=== PATIENT | male | born 2000 | race African-American/Black ===

== ENCOUNTER 2019-10-05 13:50 | Emergency (ER) | payer OTHER ==
[~2019-10-05] VITALS: Ht 170.2 cm; Wt 84.7 kg
[2019-10-05 13:50] VITALS: BP 142/60
[2019-10-05] MEDS ORDERED: IBUPROFEN 600 MG TAB PO ONE (14:45)
[2019-10-05] MEDS ORDERED: ACETAMINOPHEN TAB 650MG DOSE (2X325MG) PO ONE (14:45)
== END 2019-10-05 14:43 | disposition home or self-care (01) ==
LOC: M ED 13:50
DX: M79.674 Pain in right toe(s) (principal); M79.675 Pain in left toe(s); X31.XXXA Exposure to excessive natural cold, initial encounter; Y92.138 Other place on military base as the place of occurrence of the external cause

== ENCOUNTER 2019-10-08 07:14 | Emergency (ER) | payer OTHER ==
[~2019-10-08] VITALS: Ht 170.2 cm; Wt 85.4 kg
[2019-10-08 07:15] VITALS: BP 170/98
== END 2019-10-08 07:52 | disposition home or self-care (01) ==
LOC: M ED 07:14
DX: G90.09 Other idiopathic peripheral autonomic neuropathy (principal); X31.XXXD Exposure to excessive natural cold, subsequent encounter; Y99.1 Military activity

== ENCOUNTER 2021-03-11 11:50 | Emergency (ER) | payer OTHER ==
[~2021-03-11] VITALS: Ht 172.7 cm; Wt 84.5 kg
[2021-03-11 12:27] LABS: HEMATOCRIT 43.6 % (42.0-52.0); HEMOGLOBIN 13.7 g/dl (13.5-17.5); MEAN CORPUSCULAR HEMOGLOBIN 23.4 pg (27.0-33.0); MEAN CORPUSCULAR HGB CONC 31.4 g/dl (32.0-36.5); MEAN CORPUSCULAR VOLUME 74.5 fl (80.0-96.0); PLATELET COUNT, AUTOMATED 190 10^3/uL (150-450); RED BLOOD COUNT 5.85 10^6/uL (4.30-6.10); WHITE BLOOD COUNT 5.2 10^3/uL (4.0-10.0)
--- NOTE | 2021-03-11 12:31 | REP ---
INDICATION: trauma. COMPARISON: None. TECHNIQUE: Axial scans without contrast. FINDINGS: No displacement of midline structures. The 3rd and lateral ventricles show normal size and configuration. Cerebral hemispheres show normal configuration and attenuation. No evidence of hemorrhage, mass effect or edema. The brainstem and posterior fossa are unremarkable. Calvarium intact. IMPRESSION: Negative brain CT. <Electronically signed by Yung Bautista > 03/11/21 [id number]
--- NOTE | 2021-03-11 12:50 | REP ---
INDICATION: trauma. COMPARISON: None. TECHNIQUE: 2 x 2 mm contiguous helical scanning reconstructed in both sagittal and coronal planes FINDINGS: Vertebral body height and alignment is within normal limits. The disc spaces are symmetric and well maintained throughout. The facet joints are well aligned bilaterally. There is no acute fracture, dislocation, or subluxation. There is no abnormal anterior spinal soft tissue swelling. IMPRESSION: No acute abnormality <Electronically signed by Samir Leonard > 03/11/21 0059
--- NOTE | 2021-03-11 13:00 | REP ---
INDICATION: trauma COMPARISON: None. TECHNIQUE: There are four views. FINDINGS: There is no fracture or dislocation. Mineralization and joint spaces are normal. There are no calcifications or foreign bodies. IMPRESSION: Essentially negative right ankle. <Electronically signed by Donavan Rhodes > 03/11/21 1257
--- NOTE | 2021-03-11 13:03 | REP ---
INDICATION: trauma COMPARISON: None. TECHNIQUE: There are four views. FINDINGS: There is no fracture or dislocation. Mineralization and joint spaces are normal. There are no calcifications or foreign bodies. IMPRESSION: Essentially negative right foot. <Electronically signed by Donavan Rhodes > 03/11/21 [id number]
[2021-03-11 13:04] LABS: ACETAMINOPHEN LEVEL < 2.0 UG/ML (10.0-30.0); ALBUMIN 4.1 GM/DL (3.2-5.2); ALT/SGPT 30 U/L (12-78); BILIRUBIN,DIRECT 0.2 MG/DL (0.0-0.2); BILIRUBIN,TOTAL 0.4 MG/DL (0.2-1.0); BLOOD UREA NITROGEN 10 MG/DL (7-18); CALCIUM LEVEL 9.1 MG/DL (8.5-10.1); CARBON DIOXIDE LEVEL 27 MEQ/L (21-32); CHLORIDE LEVEL 109 MEQ/L (98-107); CREATININE FOR GFR 1.14 MG/DL (0.70-1.30); ETHYL ALCOHOL (ETHANOL) < 0.003 % (0.000-0.010); GLOMERULAR FILTRATION RATE > 60.0 (>60); GLUCOSE, FASTING 86 MG/DL (70-100); POTASSIUM SERUM 4.1 MEQ/L (3.5-5.1); SALICYLATE LEVEL < 1.7 MG/DL (5.0-30.0); SODIUM LEVEL 142 MEQ/L (136-145); TOTAL PROTEIN 7.4 GM/DL (6.4-8.2)
[2021-03-11 15:34] LABS: AMPHETAMINES LEVEL URINE NEGATIVE (NEGATIVE); BARBITURATES URINE NEGATIVE (NEGATIVE); BENZODIAZEPINES URINE NEGATIVE (NEGATIVE); CANNABINOIDS URINE NEGATIVE (NEGATIVE); COCAINE METABOLITE URINE NEGATIVE (NEGATIVE); METHADONE URINE NEGATIVE (NEGATIVE); OPIATES URINE NEGATIVE (NEGATIVE); PHENCYCLIDINE URINE NEGATIVE (NEGATIVE)
[2021-03-11] MEDS ORDERED: HOME MED LIST COMPLETE! XX SCH (20:40)
--- NOTE | 2021-03-12 08:59 | ECGEPIP ---
[facility] - ED Test Date: 2021-03-11 Pat Name: UZIEL SOLIS Department: Room: - Gender: Male Bank Manager: : 2000 Requested By: NAOMI Angela Order Number: [id number] Reading MD: Norberto Vitale Measurements Intervals [place] Rate: 64 P: 40 RI: 150 QRS: 67 QRSD: 86 T: 22 QT: 364 QTc: 375 Interpretive Statements Normal sinus rhythm with sinus arrhythmia NSTTW ABNORMALITY(S) NO PRIORS FOR COMPARISON Electronically Signed on 03-12-2021 8:59:06 EDT by Norberto Vitale
[2021-03-12 09:44] LABS: RSV AMPLIFICATION NEGATIVE (NEGATIVE)
[2021-03-12 10:40] VITALS: BP 139/71
== END 2021-03-12 10:43 | disposition short-term general hospital (02) ==
LOC: M ED 11:50
DX: R45.851 Suicidal ideations (principal); S93.401A Sprain of unspecified ligament of right ankle, initial encounter; X83.8XXA Intentional self-harm by other specified means, initial encounter; Y92.138 Other place on military base as the place of occurrence of the external cause; J45.909 Unspecified asthma, uncomplicated

== ENCOUNTER 2021-07-05 17:16 | Emergency (ER) | payer OTHER ==
[2021-07-05 17:16] VITALS: BP 127/74
--- OUTSIDE RECORDS SUMMARY | 2021-07-05 17:25 | CCD ---
Author Author [facility] Organization [facility] Address Unknown Phone Unavailable Care Team Providers Care Staff Physical Therapist Name Role Phone SYSTEM IN, NOT IN PROVIDER Unavailable Unavailable ROMINA LOCKE MD Unavailable Unavailable ROMINA LOCKE MD Unavailable Unavailable ROMINA LOCKE MD Unavailable Unavailable ROMINA LOCKE MD Unavailable Unavailable ROMINA LOCKE MD Unavailable Unavailable ROMINA LOCKE MD Unavailable Unavailable ROMINA LOCKE MD Unavailable Unavailable ROMINA LOCKE MD Unavailable Unavailable Steffi Vargas MD Unavailable Unavailable Steffi Vargas MD Unavailable Unavailable Steffi Vargas MD Unavailable Unavailable Steffi Vargas MD Unavailable Unavailable Steffi Vargas MD Unavailable Unavailable Steffi Vargas MD Unavailable Unavailable Steffi Vargas MD Unavailable Unavailable Steffi Vargas MD Unavailable Unavailable Steffi Vargas MD Unavailable Unavailable Steffi Vargas MD Unavailable Unavailable Steffi Vargas MD Unavailable Unavailable Steffi Vargas MD Unavailable Unavailable Steffi Vargas MD Unavailable Unavailable Steffi Vargas MD Unavailable Unavailable Steffi Vargas MD Unavailable Unavailable Steffi Vargas MD Unavailable Unavailable Steffi Vargas MD Unavailable Unavailable Steffi Vargas MD Unavailable Unavailable Steffi Vargas MD Unavailable Unavailable Greta HUMPHREY MD Unavailable Unavailable NIZAR, R AHMED MD Unavailable Unavailable NIZAR, R AHMED MD Unavailable Unavailable NIZAR, R AHMED MD Unavailable Unavailable NIZAR, R AHMED MD Unavailable Unavailable NIZAR, R AHMED MD Unavailable Unavailable NIZAR, R AHMED MD Unavailable Unavailable NIZAR, R AHMED MD Unavailable Unavailable NIZAR, R AHMED MD Unavailable Unavailable NIZAR, R AHMED MD Unavailable Unavailable NIZAR, R AHMED MD Unavailable Unavailable NIZAR, R AHMED MD Unavailable Unavailable NIZAR, R AHMED MD Unavailable Unavailable NIZAR, R AHMED MD Unavailable Unavailable NIZAR, R AHMED MD Unavailable Unavailable NIZAR, R AHMED MD Unavailable Unavailable NIZAR, R AHMED MD Unavailable Unavailable NIZAR, R AHMED MD Unavailable Unavailable NIZAR, R AHMED MD Unavailable Unavailable Re-disclosure Warning The records that you are about to access may contain information from federally-assisted alcohol or drug abuse programs. If such information is present, then the following federally mandated warning applies: This information has been disclosed to you from records protected by federal confidentiality rules (42 CFR part 2). The federal rules prohibit you from making any further disclosure of this information unless further disclosure is expressly permitted by the written consent of the person to whom it pertains or as otherwise permitted by 42 CFR part 2. A general authorization for the release of medical or other information is NOT sufficient for this purpose. The Federal rules restrict any use of the information to criminally investigate or prosecute any alcohol or drug abuse patient.The records that you are about to access may contain highly sensitive health information, the redisclosure of which is protected by Article 27-F of the [facility] Public Health law. If you continue you may have access to information: Regarding HIV / AIDS; Provided by facilities licensed or operated by the [facility] Office of Mental Health; or Provided by the [facility] Office for People With Developmental Disabilities. If such information is present, then the following [facility] mandated warning applies: This information has been disclosed to you from confidential records which are protected by state law. State law prohibits you from making any further disclosure of this information without the specific written consent of the person to whom it pertains, or as otherwise permitted by law. Any unauthorized further disclosure in violation of state law may result in a fine or alf sentence or both. A general authorization for the release of medical or other information is NOT sufficient authorization for further disc losure. Allergies and Adverse Reactions Type Description Substance Reaction Status Data Source(s ) Propensity to adverse reactions NO KNOWN ALLERGIES NO KNOWN ALLERGIES [facility] Encounters Encounter Providers Location Date Indications Data Source(s ) Inpatient Attender: ROMINA LOCKE Drew nder: Steffi Vargas MDAttender: BERNIE HUMPHREY MDAdmitter: BERNIE HUMPHREY MDReferrer: PROVIDER SYSTEM IN [id number] 03/12/2021 10:01:00 AM EDT - 03/22/2021 10:20:00 AM EDT [facility] Patient discharged. Medications Medication Brand Name Start Date Product Form Dose Route Admi nistrative Instructions Pharmacy Instructions Status Indications Reaction Description Data Source(s) Ketoconazole 20 MG/ML Topical Cream Ketoconazole 2 % E xternal Cream (NIZORAL) Ketoconazole 2 % External Cream (NIZORAL) 03/23/2021 12:00:00 AM EDT active Apply to affected area [facility] olanzapine 5 MG Oral Tablet OLANZapine 5 MG Oral Table t (ZYPREXA) OLANZapine 5 MG Oral Tablet (ZYPREXA) 03/22/2021 12:00:00 AM EDT 5 mg Oral active Take 1 tablet by mouth [facility] olanzapine 5 MG Oral Tablet OLANZapine 5 MG Oral Table t (ZYPREXA) OLANZapine 5 MG Oral Tablet (ZYPREXA) 03/22/2021 12:00:00 AM EDT 5 mg Oral aborted Take 1 tablet by mouth [facility] Ketoconazole 20 MG/ML Topical Cream ketoconazole (NIZO RAL) 2 % cream ketoconazole (NIZORAL) 2 % cream 03/20/2021 09:00:00 AM EDT Topical active Topical, Daily Rock dard, First dose on Sun03/20/21 at 0900, For 30 days
Apply to affected area
[facility] Medication administered onsite olanzapine 5 MG Oral Tablet OLANZapine (ZYPREXA) table t 5 mg OLANZapine (ZYPREXA) tablet 5 mg 03/17/2021 10:00:00 PM EDT 5 mg Oral active 5 mg, Oral, Nightly, First dose (after last modification) on Mey 03/17/21 at 2200, For 29 doses [facility] Medication administered onsite olanzapine 10 MG Oral Tablet OLANZapine (ZYPREXA) tabl et 10 mg OLANZapine (ZYPREXA) tablet 10 mg 03/16/2021 10:00:00 PM EDT 10 mg Oral aborted 10 mg, Oral, Nightly, First dose on 03/16/21 at 2200, For 30 days [facility] Medication administered onsite Magnesium Hydroxide 80 MG/ML Oral Suspen milad magnesium hydroxide (MILK OF MAGNESIA) 400 MG/5ML oral suspension 30 mL magnesium hydroxide (MILK OF MAGNESIA) 400 MG/5ML oral suspension 30 mL 03/12/2021 12:16:44 PM EDT 30 mL Oral active 30 mL, Oral, D aily PRN, Constipation, Starting on 03/12/21 at 1216, For 30 days
If serum creatinine > 2 notify provider before administering.
[facility] Medication administered onsite Hydroxyzine Hydrochloride 50 MG Oral Tablet hydrOXYzin e (ATARAX) tablet 50 mg hydrOXYzine (ATARAX) tablet 50 mg 03/12/2021 12:16:34 PM EDT 50 mg Oral active 50 mg, Oral, Every 6 hours PRN, Anxiety, Sleep, Starting on 03/12/21 at 1216, For 30 days [facility] Medication administered onsite Acetaminophen 325 MG Oral Tablet acetaminophen (TYLENO L) tablet 650 mg acetaminophen (TYLENOL) tablet 650 mg 03/12/2021 12:16:32 PM EDT 65 0 mg Oral active 650 mg, Oral, E very 6 hours PRN, All Levels of Pain (Pain Scale Score 1-10), Starting on 03/12/21 at 1216, For 30 days
Maximum daily dose of acetaminophen is 3,000 mg from all sources in 24 hrs.
[facility] Medication administered onsite Insurance Providers Payer name Policy type / Coverage type Policy ID Covered constitution party ID Covered constitution party's relationship to buitrago Policy Buitrago Plan Information [facility] [id number] Self [id number] [facility] ACTIVE DUTY [id number] SP [id number] [facility] HUMANA - O/P [id number] Problems, Conditions, and Diagnoses No Information Surgeries/Procedures No Information Results ID Date Data Source [id number] 03/22/2021 08:36:18 PM EDT [facility] Name Value Range Interpretation Code Description Data Kristen rce(s) Supporting Document(s) Discharge Summary [employer] PXIZVw4nPdNUYqPz68/ZMDoeNWKog9YzPDnvDTg6EZjkASRcX8FuDVJ0aO7aYOO3APtDHmUzCiMsBCW1 lbm [file] y5XEg5UQE320aEOqqeATxMaTURg0zj29K1Yo5PLJUbIbLZRxAH8XvTc4HwadBo1FtCSDeu9whRLw+bench 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 battery [file] 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+Np7TXIYrYYa6O4T3IXZsQXi7Y7WSE5BEBPZvNT hjURjwNDKzIUc7K2C5MHVxX6RWP3Qbhzwhtp5+YO8QZ69NWBKdWYm0P6N6nVRnL2N9aTjKpGH9PQ0HLY 7PbVt5kDVtwF3+XG1XS2CBIxMgKVw7D2D5mMAxH7D9qBqRuIJ1YT3BJK1MsPBvNTQmdfIeCb3lY7GGGZ hENuSRGTS8NE1XqRSjMZ1WhSJIU4XbeTXbJt1lKMto dHSjmP3cBx6kRMfdKR8MMnTCEZaDAAO1ZB9ZxELrBH3QiWHDS5ZloBAxNp5oIAsaxXQqtr9+LN9QXFIi Ne7FUq7+QTyuvoHnKkwRSuI3JVGli8ZxGPl0SJ2IEF4hkGrhGOZ7Ym0LiIU4cFGuY8lRCT1DwWFhZ94a wKZeGQUuQg0VKrJ4uxDiuO0BDH05pIQjm3B7UXZwI0 qaUHphv65sITlbUUuSLT7cZILVWKhbKQxgJNC8MvGwpdslCSEqXy2NCrPzDAz3cP6mtNJ1CJH3IkecfM UmRBfsMcDdNgZrGwY9nKuddcb0FFtbQV5zEVndmtcaIPDqBet+JBnqZGJgEQXkGqdBJSTaeT4pulR1qu DeQHvtoLQdWc1qw9z3GtysQr6nUf3uWIz5PtGwHrEj FPMdUr3zaJ40RNfxyrOrFn7WJgVdDWB1D8EbJimIWRL+RYrtOCsnnAw7wMGhUNCgPw3NDEYfEUFcYHSy ICAgICAgICAgICAgICAgICAgICAgICAgICAgICAgICAgICAgICAgICAgICAgICAgICAgICAgICAgICAg ICAgICAgICAgICAgICAgICAgICAgICAgICAgICAgIA 0KICAgICAgICAgICAgICAgICAgICAgICAgICAgICAgICAgICAgICAgICAgICAgICAgICAgICAgICAgIC FvZFDdAVQnDFSvYHUtOYYqINKyOOIsBMDtGHGuUTThFJXpMXHwMRLuVV7QAEZeDANcDEUjFRIbZYWoZT AgICAgICAgICAgICAgICAgICAgICAgICAgICAgICAg DQLsERDdYYBpBIGnSSSgIAOeJFFvJAFwGLLgBXDaVTKvZRPuCYVzLHEiLPIxOAKcRMGeOH6RIPJbXEGc ICAgICAgICAgICAgICAgICAgICAgICAgICAgICAgICAgICAgICAgICAgICAgICAgICAgICAgICAgICAg ICAgICAgICAgICAgICAgICAgICAgICAgICAgICAgIC RmEK7SHAMgVNKbCZKoRFVzMQIqKTUqTVQoXOCsOYIdIKPjWCFqUCWsZYFrBPDeQMMfZZMqRCJqRULaUB IvEZKlRBRvWSYzAFEaPATiPJUuCIXoPNGhFBYhXQMsTAMzKCWtEPLwRMCnDI1QWBXpLNWdNBEaSSInWL AgICAgICAgICAgICAgICAgICAgICAgICAgICAgICAg MIRaIAEgADOcZXHlALVjMVIzOTQjQYMsQWPaORLrKINlJPFsHDEaEWBpPVIhJVSbITTiWZYgFS5ODDWj ICAgICAgICAgICAgICAgICAgICAgICAgICAgICAgICAgICAgICAgICAgICAgICAgICAgICAgICAgICAg ICAgICAgICAgICAgICAgICAgICAgICAgICAgICAgIC KxRQJbST8RIACdLWAsQPOiLTNzZTKyZHVxVWUaXBNkBKWiJRSnCXEbGREiHZGnOBQqVQGrAPRgBLLcBZ JpKRJcBEPgJVXhVLLzCHHtWMInBLPjCDHlPWCiGEVmIRSdJCRrPLPsVUArCEExNT7ARWBmMYEtHEHuMT AgICAgICAgICAgICAgICAgICAgICAgICAgICAgICAg YULiPAFkOTTuZWJeUTCzBVIsAKGsHHPxYRInNEZoUUCfSJMqOBReQVDtSGCzQWBqLWRtIDFbINPtKI4E ICAgICAgICAgICAgICAgICAgICAgICAgICAgICAgICAgICAgICAgICAgICAgICAgICAgICAgICAgICAg ICAgICAgICAgICAgICAgICAgICAgICAgICAgICAgIC ClZYXpZKYkRV5HLD44nIArn1B6QVXgKQ5bsqc/Sf6VIWldobHjrVXcMM2GFjIkSP8jad9YCsGvDG2tyo 1UVScMHdJzD7L1sVNeQKNjOYHHGxOzW87yTAdpFg35TMxpWNUwKiJtDEe7Xa7JZqSmZ9alIGUuEbJ1TF YdUnK4SCZuQrC4RAMyBhPmKQGcWPWmXXBwYLZBALX7 JZDjEeRrCuIkLNEnVUaeJAAITLBjCOToAcVkCVseCJ9Iu8TyoQU2WTs+Tb5BQI7bd7HrDRj8EOKlZN1e pb7GVLfARzDmB3RhawU6BMG0TDSzCh1UUHNaXVAuxDG3GHWuOCNKOvIdC7WfbE03GHAZCr1+DQplbmRv ExuTBkS3UZPde6MqPDn4YJ2NPENaFDf7pUAsQCjoF9 txhysiGZG8rJ5kjstrPlppLYUrtVaxFInpHQ7zJL5SNFF8BQfnDxKsNgGhCBTfIKirZSUKUOqLIaJyQ9 Ldb1UpGlW0ZKRcZuCrHXgqLYWiOuN8VL08xFibUP8RWFZqXIWaTB43GWI1UTUcYy5LVk5ZGuLzWR9qnc 6ZKmRqAOSsLhxJWcf8XAsvTT4MbFWxK1WnmSSyg0rC DlHjJ1PDNIB9RSTjPi1INDPcVtXbNBTkIRxgFI8gGBUrIPYFsXaktdP0BC2OZE1zdlLpVV3XZpBjBz7j Jx9SBxNdV3ItG8VkMIRbSPEMLZpzKK8PQImpBP2eFK6To6UQnLEshJ0qna1ZPFDdERIpVqgpsu6NAnuu J3L8pJenQKGbRSghYSRKJOcwVE9EQYFxXLX2CUV8Dx HrZQEMLrKmH36aLY3SB8Jyl59tKmJ8WHXlPbCsMApvBH37mJddueOshDJicIjmBN3EIa6+DQplbmRvYm sNPhxlJNSPQoThGtGWPjXdOGLtWDYoDLQzKmR2ZuTqVw9SLYLrTYMuIIFlBiRcPSOjARXuCGffVJNdEX JuFIFoCIJwZHHkBO8OSaSdQDRbCsH6NbUpQDXjCFIi qc4TDWUtMTWbHSJ2OxEoSOVuDVHzUTahLPPnSJQ7VHFcOGScUXOfSL0QFzThBPNtEAWqRQQyNCSwMRLc dd7MYAHwRGYbKJL3KBXrJSNfHDXcJHlmVWUuVIE1PkSyDMDqUVRtRN0OArPfLPJvOVA3LESxZSFnPYZf my4OPKBkUJPwKMl7QPOjYAQrKRJtSLczPCMgCQF7Xy I7RALnECJqVE2OBrDdREZsHFQ8THIqTOUqKKOeqz8GILUjXFBdFDsvUjYxVOXsVKLvFPwcBYKzYIJ9KL F2JPQqDAUkFO8AWzMjTFHlKjG2ZUDrQYJgLMLkzh4UMVFeJUOyYgstTiItJAIzLHPkVHikAEMeERW5Rg m0BBDtOKIiLM7KQzNzYRSkKcc5JYDaNRYpBJBslw7D XPQlYNAbLCOcHVHzMLGsMMLyVRamYMLtQIVvPGR2UBFyOGYwEZ2LScEmQZNqAeS9HHTwODVcXGZpgi4I JTUmKOHuYoy7SOKwMAMkEAEnZHhsCGJvGMK6FBV6PTQaDUGoMH4VRyVwSVYvXtWcOOMnSEYhNJUaub6S SCQmACQxGZZgDBApTRInYJSuKNmyQVVyWEC7OTk4PU TuFQOuAS4YGaWgCKOkPhAeZUAtMYUsRMSjia1OAPGrAREgDfK5WOKvQIGwLDLeSCrzGTAwHHJ4CWB5UL GeKZMxXB9UExZqZHUkVba0QoecNUGsNOSstt0BBUPlIPMyYxcyIqOxBKSmAHWyFHrhQYJsZRZ0TAy9GC JoFVXaYP4UCqZsHOWhRzsxTVQtJXFzXVIfmy8XEUHb HFXgUPM9KbBsYJTfXXYjSIhsZTOxFXEfGcT4GWMiHWCaZQ6TWbKiFDNfNQN0NrTzMTMnTKUjhu7RHJOu CHN0ELVnSXOsEXArYTTcXIpbCWLnVPZsBRdnSQXpDUXsHA4RXyHoNEYkPHH7ABswZYLwEKVgdz0GCUXh OIC6CVa2AZOvQUCnREAsYKleLVBvWGSzInJ1RUKoTB AqBP9MFvRkMANrLPO4RHkoFPJvZLArdc2UHJUcMAW2Sgj3PtHrCQRhDQDhSBkiRUYcPXU2XNO8BLYhJG AlKY5CLuKbYUEoANBvPCXcNOVaOBXswu5FLTDiOFE9DANcMbZwWYKiMGMhXDgoZURtJPG8TVL1YEWoQG PdKF8LZiAlOYObTIs5LxQzHYHeSHYclf0XDBUePIR8 PGfvJTAfPRQbGHHjXJqoQJImLEFlNBsoYURnUWZgDE8JEmRfDCCrPmZlAHReGXSyOESqst7HQSVqXTI3 SYPhCGNyZYJtQJJnRTguQEFxPLReJuzzVSNyWUYwLN3RZyZgNXRwBgB3PYOpGXKcNCGyvx9NIOPzAUT9 MTgwMiAwMDAwMCBuDQowMDAwMDYxOTgxIDAwMDAwIG 8YNiByKDPqRsY5GXNbDUGuTFTszx7QANRmUCA9Kop0KgDjKVOgXEHfTLfdLCLrLAZ2GVX5EUQlIBMeLL 8RSwHaVYPfBnNxFZZfNSMgXKEcdt2IjMEqmBgxbx5DJAwTTk7FgTfqGDEuNPdlAu8aiIW6TYDjZYXCLc 7FzwPnKGVsQQQVFIybLADuOKv9FNG8ZGs8WPjnIGKr BvAiIRM2YeXwHGL3PUC1FFGvPuJ7CWnqYBP8LLiwRMBuM1GzXpF8MBj9AJHiUUIpGUFtRFU+HX1eCAr+ Qh5Tu0SvwvE8fcJqSVt1TOM4PL1BZVWOO2JWYp== ID Date Data Source [id number] 03/13/2021 04:37:20 PM EDT [facility] Name Value Range Interpretation Code Description Data [facility](s) Supporting Document(s) History and Physical [facility] TCSQYh1nYjQJOeMn77/PDKeqZGGfc6KnXLvsPHn3MKdmLUZtO5WhTGF7cG6rUNI5FSrXIoEsVyKiWKM8 lbm TtHseZAcMuAXOpRkpTXeKaZPwiFzeqnLPaZI7GaTX3PLXhY05jDMUsXUDhJ6MdJXT5FPd+Dq6FECVvjN MdYM0CQjuR9Ckxg+R4Ik5tlT+HDIAFDkvmUfNEELGId7J839bnuxT4r4W1Q1G8CoqVkFwa0Ns++sp6sT jvnvFZGKs0qP9XpGpDyRhND53IRyOLCH10Db7563Gz th2v16yaPDSqrv//SdTdbLXpVv/JOpEBytKWXwzI/jDremo4KIbhj5hMwRyDppU6TzdtoMMxoIN9MDj5 hXd9S4ookcxOCYak6uyMYQSM0IkYK3LkGRILXIX/p8hDCzxFuFThy+B4SbzpmQxYZRgpPVN8DfzFybwa 0oHKffzBzluIZcsjdsGBHzCCqPLGKR2MSL4H+vm7nD 4fiQ87+0C6AXnfiXWKFfSubErPgz4tCw4jDb1iudT0Gkp217WAH43lcGAKmsXZx6TFztWRQK3nnWgC3R 2ggOdJq4IdGOQEyb6eJUkTjAcgCFwEolgNBp9xk6V/0jhapOIsmifTZXg/r4fdqqfwWd+ePOye1lU32S w3h4i6xtj5naUWEyQz27YlsIO8TTot/nRZ4Ltg3Qyv fp8dIXxC0E8z4qxfest1mH3xpfmF1m1Gk85C8pl71RUJeNyao+XysA1puelm80JP/pYan7EfjQ7wzmCH 5+fs5Lr+MyA5TeJwqZYHhjJ78wxxGOEGSYxEOs0XMcKRhxvWaofurO9VfQSJZKUNQW9WRTFHVwxZdhSj vnClFw4/6gDWDa2XfxQqcRMBAy02JUPz0h65YDtJVw GJvrw3SrkDf3iY/n5iWV6h9TO1pGEq+xEtEzifO0R/UP+Saeid+s9NZPtsC2B6QvD4ZdpG0+JQOTpgTtax JOGwpwY0MIuzuFHdWZ7Tlv2ygVvZAQ4pJiS4bMtPXEtom9sjkiHMV+uj4acqOCtRgrbOY92mdU39kpfo +G5NevHk4w/mp+EgZIo1mHVTUjQT7FUYYY4ETrnzHc +omSpxSO+5SksdSDSrCdNZNDVWRST/iAJzVjwfQX41FjaIS+mJ93emsUOmybnNbvxhIhZXLBTjBJzuAk CMnbf0C2WCT6r1YWvwpU9FZi5LAIBMzi4VMN+dP0n5LEEQw8e00GBwhZpw1vvESZD9zY16v0nL1XYoex 9EbbDO9gacJTSdbik1s2kzHFnsuvGb9Adev7UMLqFz WpNErlirXnJgG38y7IpnT1jr1MXotoHa/HwkgxGvu8nsg3ov1fhYyuiybG5fZtOwIwh7px5qsxw9PFcD QyAAJH+xdHgu7x7kRtIbIzuFdFcgpBTicyRoOvesw01H/pWrlvh32YeWvvlqeN7FBhy4BcH9LiLXISpy fOKsCf4qiDnwLNCocFSsyLtvhK7JlJlt6E8N6w059u dfdouiEUVrqBRJtsIvo4E+vPbju35wQnvsIbUfQq6Ynr+IYFZBrnO2Yj/n+7OT7NqyguJNsN5E2qiERE u3veFP9vfZFeztKLDOKRBb1CDS+PFC/Ayj7N5MJa24+XigDeO8QNOC2YBeAxvTq/BoWVt1PHyBFnuqav uOJ8LtcA/F+0xNfbgE9ZmlZtmB9jjXXJPE/7IGhH7a i7bDDLvt8zjcnMQYyIy1vSVKGx7qygLTqqgSj1RFVhERcBrnhpeSybxanjyBWD64yd2O7VBmvyIj63na Tb1ZRraB8g83oVnSmBwPc2fmTxDLNF2vmSJu3ZTiuWPtWKCPwfW05eCKPkqyrfOg+c4nu32qwxpj1fSo uOUN2Lf5G2oszYudIJvJ8hcTvP4ThylQ2qgiyf+lF4 x32G7bM3f99ySYC6tVL6SUxNn4kRIPO1d2J8QpN4Zr3NgopmHbtURzQX1ICkuvkbj9mp8DayMU82+MAGGIE [file] Z8MGTuXVN+IZ9hBAk+Gt4Hm4XgmwW9npXqDRroRIK5Yl0CDAUUQ3VTFa== ID Date Data Source [id number] 03/12/2021 04:47:14 PM EDT [facility] Name Value Range Interpretation Code Description Data Kristen e(s) Supporting Document(s) History and Physical [facility] MNRTOo5hRvTYWtXz94/GNGukRNTzi6KtRNlzEIh2IClbUZAmW8WxCEM7kB5iPXL5STdBUmQqMaRbDPS9 lbm AmUvdXJaWyAGSgRlyXNeMgBWyhKhacpOKbIY0DsDT5AIXoV12yBZYcSVMkX1XyABPfMAL+Xx5RGNWfqG MwDV7JGrcR8H3uZsP6Qn0+2l9TDwgTSwBOta3w1p3uDCfsGtRWLOrp+AKBXNprsY6Sd4dcR9q6C1fBXP +063ImZd3Xy0EI2Gk31z26t7Tv/arQcPxB85th+7P8 [file] +z8lXKkwjhTV0ryjnnxF7AOF/MANUFACTURING DIRECTOR/xlEAmA6dMGhRrOdcJqkGnrrkvIy4p8KXiyRtg77kP6+7xhEx3iGg [file] AgICAgICAgICAgICAgICAgICAgICAgICAgICAgICAg ICAgICAgICAgICAgICAgICAgICAgICAgICAgICAgICAgICAgDQogICAgICAgICAgICAgICAgICAgICAg ICAgICAgICAgICAgICAgICAgICAgICAgICAgICAgICAgICAgICAgICAgICAgICAgICAgICAgICAgICAg ICAgICAgICAgICAgICAgICAgDQogICAgICAgICAgIC AgICAgICAgICAgICAgICAgICAgICAgICAgICAgICAgICAgICAgICAgICAgICAgICAgICAgICAgICAgIC AgICAgICAgICAgICAgICAgICAgICAgICAgICAgDQogICAgICAgICAgICAgICAgICAgICAgICAgICAgIC AgICAgICAgICAgICAgICAgICAgICAgICAgICAgICAg ICAgICAgICAgICAgICAgICAgICAgICAgICAgICAgICAgICAgICAgDQogICAgICAgICAgICAgICAgICAg ICAgICAgICAgICAgICAgICAgICAgICAgICAgICAgICAgICAgICAgICAgICAgICAgICAgICAgICAgICAg ICAgICAgICAgICAgICAgICAgICAgDQogICAgICAgIC AgICAgICAgICAgICAgICAgICAgICAgICAgICAgICAgICAgICAgICAgICAgICAgICAgICAgICAgICAgIC AgICAgICAgICAgICAgICAgICAgICAgICAgICAgICAgDQogICAgICAgICAgICAgICAgICAgICAgICAgIC AgICAgICAgICAgICAgICAgICAgICAgICAgICAgICAg ICAgICAgICAgICAgICAgICAgICAgICAgICAgICAgICAgICAgICAgICAgDQogICAgICAgICAgICAgICAg ICAgICAgICAgICAgICAgICAgICAgICAgICAgICAgICAgICAgICAgICAgICAgICAgICAgICAgICAgICAg ICAgICAgICAgICAgICAgICAgICAgICAgDQogICAgIC AgICAgICAgICAgICAgICAgICAgICAgICAgICAgICAgICAgICAgICAgICAgICAgICAgICAgICAgICAgIC AgICAgICAgICAgICAgICAgICAgICAgICAgICAgICAgICAgDQogICAgICAgICAgICAgICAgICAgICAgIC AgICAgICAgICAgICAgICAgICAgICAgICAgICAgICAg PBYoQQGdKNNrAQGkARReRVYgBJSeKDNvEDLcUDFjLTErDBIfTNLoKAVqIYTbDTn4U3bzPEDcFPZaST7b PQh4Sv7+GJxWNwPbBFY7uyTecD2RQA1jv2PrXHlvISWzg5EtEDv3HR1IGFZpHDcgET6HPDumko6OYIOt KQJmzSLLy5pxAzYsNSH3BKJfDkbxXF2CHFUhO6iztg SyFIEiRYOJUOibEYEXSFmsHTTOTFQlPTJqDrZqGyKwLVQjZPYkRIABQPV8XVJuUwHwXSgrJB3Xq1RquZ A3DQo+Uj5ZPT1it0AuUAx9VgAeFX2che9KLCoTSlXoF0CmxeF2AJK6XPTlTc6KMBUyLICbnWI9JXInHA NZBwHmC0LlpT67LMEHEt7+JGptnmAzLbnVYxW0SAFf i3DcOHw7GD6YQKZhWHt0hTJnVXQVJXT1BIZncvjpTINKb9B3PNZNFTNdzMH8CqP9XsBhGwTfBOP9CDFi RE8zAQnzLS9JWMC4ZLkqEWNfEOGoZ6jEYkMmKPEvVyTpxQnaGM3JZyQwL3RsvkSixZS1BeRoSXAZEu3+ YNytfqKzQazRFyQ9ZMFez6YqQTv5CZ6JWQCbEUfnTR 1EDYDmeS6yDTbdVH6JHtK4JEQjXKTNBuWvE19eqWRuXCl9S6OlEjPwTCAxLsdqZHZnNPnhSvOaXXOfOr BdDQogID4+ID4+YEyuYA9XEWjejqOsPOIpHo5OKWNkVEJrTL0eXITvDVGuM1W6vVctUCHLIgCeU9ysth nhAH1dPGEzX562xUezpcNqONIaFYOcAq7AXGYdWVB7 IPZfcWMvCCCeBFVWCHrvDT5YtBRyKWY0oT1wFRnzQIAxZSZdW3jQLjScvCspKH64mFxlizFjnBVyIVr+ Gg4QHR3yc4EwYPb5wnVfOZvyVAB0LZqjBMJtLBSrEHGsQDC8FPS1POSVIuWoVMVvAEPfLPxaHKHyBHXg ww8YCCIvLRJnOTC5LHGxBLJpIOSxCBghCIYwDHC6Xt C4NGCmCSVmUH1CMkNxOZVjBQDhGCwnRYVoHNSoqh9YXTNjBVNpScQuDZIwAEFjZTRqULidSGSlVEGsHz D4HVHgKNEwZF4FEfBmKDMsKJYuRHYwEJWnPFBmop4ODQTzECLnVsS3UOOgQVQnSMIbAEbtEQXsDNGvXK c7SERnTFDrSW8TNlXeSEPfCFZ8EgfpPDNvGPEyeh7D CUWrFABjKSC1VeRhOMGaLUVnZNhaPODkLPH8Bvl4WVLdJMVwNH1MXyHlXAMoZGg2NRCtCRTtPTKekf3X ZMJwSFEqZbb1ESHqJUUkLHTuKGdqGXAkLCFhRGS9RYEwOQMnLK9EAsNuZLXnMfE3JPFkIUJxZECxvj4Z TRUoREKiKsS5AUZkJWWaSBZlPAenZQYpWMKlRAGyQM OsHDKxWV2AMzLpLSGjSrV0GgVkLSOqZUBrpd0FBZSwWFJwGzVyWMDmFWSqFXTmACbsHGVvBHXmASOnRJ QiMHEwRE6BDtLrSWSmFyC4SdRzIXLrSSTkty7AWZCnSYRzWGd1JxHkBRDrJUJxGJxcYVNuUBP6UVMgVT HkYBEdDT5CMnVlQTMtFfJoUBUtOTElLRQbep4YAZOf LLZdPgPkIxDlWMUoVPKlXYikVEKeJSQ9PNesXTLlMXQlYZ4PVdGnIXGeAyj5NMMzKTTnMRFmhm5QMKXf TIAjQlB5EUIqFYBtFWLlRQbtPIPtGFQ3CES0KKPaUZUuJT7NCePiPGJeViS9WOJtCSPuXZPrjy8NXWDv ORNzRkMyVWUhCPPwEFRsNSbiXXAbXYGxIwW8WYZjYA TeHM6GCzSdCQGfQkO4FHOsPLUeKLXdua9WHCZaDZElBcCkAQMgKLEuWVSxZAknGDMsMSKbFAX3RDKoNE NxBD9KOpGkYCGaRuUvYPdaTUBgPOZeri4ZRDGaFNYqKWWhTKEvJNZeDXViDVnoEKLtZMA1OJt6MCIoQI EqDH6GQfChSKNuReHfSwTgKHKgVSZmum0FPQUxFZQf PFH2IqUrJFWjJBTyDLgaRIYeFAW8CGQ0RGQvSKRrSE7NUsXhTYRpEjz6BMGtIGDzAFDfqf0VRSNfNCAa OsB0IpIfZAEvZQEoFEvqWIDcXVS2PdMcMHBxFFYkRX2QVnSnNBacHKFVYrq6DYwrM1s0XCW2Cf7OK2Ik x7OsUOGyVCDHDMofOX3lmvNbAODwGz6YT1cWZbfhPb mdEYFxBaN8N0GcBpJ5HjI9THfpPFN4XzTpWBNuIw0xHTDbY4Z7TYE3Esi8QQShTBisQdLzASXkJuVkKE WeHOK6QkZgOL8DPg1JEbG1HBY6lGViHz9RWzo0HSJMFgLhJP5SXZn= ID Date Data Source [id number] 03/12/2021 08:49:00 AM EDT [facility] Name Value Range Interpretation Code Description Data Kristen rce(s) Supporting Document(s) SARS coronavirus 2 RNA [Presence] in Res piratory specimen by JENIFFER with probe detection NEGATIVE [facility] This lab was ordered by [facility] a nd reported by [facility]. ID Date Data Source [id number] 10/13/2020 09:59:00 AM EDT [facility] Name Value Range Interpretation Code Description Data Kristen rce(s) Supporting Document(s) SARS coronavirus 2 RNA Not Detected [facility] This lab was ordered by [facility] and reported by [facility]. Procedure Social History No Information Vital Signs ID Date Data Source [id number] 03/22/2021 08:36:18 PM [facility] Name Value Range Interpretation Code Description Data Source(s) TRANSFER FROM [facility] Patient Treatment Plan of Care Planned Activity Planned Date Details Description Data Source (s) Ketoconazole 20 MG/ML Topical Cream 03/23/2021 12:00:00 AM [facility] olanzapine 5 MG Oral Tablet 03/22/2021 12:00:00 AM [facility] olanzapine 5 MG Oral Tablet 03/22/2021 12:00:00 AM [facility] Magnesium Hydroxide 80 MG/ML Oral Suspension 03/12/2021 12:16:44 PM [facility] Hydroxyzine Hydrochloride 50 MG Oral Tablet 03/12/2021 12:16:34 PM [facility] Acetaminophen 325 MG Oral Tablet 03/12/2021 12:16:32 PM [facility]
--- OUTSIDE RECORDS SUMMARY | 2021-07-05 23:24 | CCD ---
Author Author [facility] Address Unknown Phone Unavailable Care Team Providers Care Shipping And Receiving Clerk Name Role Phone SYSTEM IN, NOT IN [...] Unavailable Steffi Vargas MD Unavailable Unavailable Greta HUPMHREY MD Unavailable Unavailable NIZAR, R AHMED MD [...] is protected by Article 27-F of the [facility] Public Health law. If you continue you may have access to information: Regarding HIV / AIDS; Provided by facilities licensed or operated by the [facility] Office of Mental Health; or Provided by the [facility] Office for People With Developmental Disabilities. If such information is present, then the following [facility] mandated warning applies: This information has [...] law may result in a fine or group home sentence or both. A general authorization for the release of medical or other information is NOT sufficient authorization for further disc losure. Allergies and Adverse Reactions Type Description Substance Reaction Status Data Source(s ) Propensity to adverse reactions NO KNOWN ALLERGIES NO KNOWN ALLERGIES [facility] Encounters Encounter Providers Location Date Indications Data Source(s ) Inpatient Attender: ROMINA LOCKE Drew nder: Steffi Vargas MDAttender: BERNIE HUMPHREY MDAdmitter: BERNIE HUMPHREY MDReferrer: PROVIDER SYSTEM IN [id number] 03/12/2021 10:01:00 AM EDT - 03/22/2021 10:20:00 AM EDT [facility] Patient discharged. Medications Medication Brand Name Start Date Product Form Dose Route Admi nistrative Instructions Pharmacy Instructions Status Indications Reaction Description Data Source(s) Ketoconazole 20 MG/ML Topical Cream Ketoconazole 2 % E xternal Cream (NIZORAL) Ketoconazole 2 % External Cream (NIZORAL) 03/23/2021 12:00:00 AM EDT active Apply to affected area [facility] olanzapine 5 MG Oral Tablet OLANZapine 5 MG Oral Table t (ZYPREXA) OLANZapine 5 MG Oral Tablet (ZYPREXA) 03/22/2021 12:00:00 AM EDT 5 mg Oral active Take 1 tablet by mouth [facility] olanzapine 5 MG Oral Tablet OLANZapine 5 MG Oral Table t (ZYPREXA) OLANZapine 5 MG Oral Tablet (ZYPREXA) 03/22/2021 12:00:00 AM EDT 5 mg Oral aborted Take 1 tablet by mouth [facility] Ketoconazole 20 MG/ML Topical Cream ketoconazole (NIZO RAL) 2 % cream ketoconazole (NIZORAL) 2 % cream 03/20/2021 09:00:00 AM EDT Topical active Topical, Daily Rock dard, First dose on Sun03/20/21 at 0900, For 30 days
Apply to affected area
[facility] Medication administered onsite olanzapine 5 MG Oral Tablet OLANZapine (ZYPREXA) table t 5 mg OLANZapine (ZYPREXA) tablet 5 mg 03/17/2021 10:00:00 PM EDT 5 mg Oral active 5 mg, Oral, Nightly, First dose (after last modification) on Mey 03/17/21 at 2200, For 29 doses [facility] Medication administered onsite olanzapine 10 MG Oral Tablet OLANZapine (ZYPREXA) tabl et 10 mg OLANZapine (ZYPREXA) tablet 10 mg 03/16/2021 10:00:00 PM EDT 10 mg Oral aborted 10 mg, Oral, Nightly, First dose on 03/16/21 at 2200, For 30 days [facility] Medication administered onsite Magnesium Hydroxide 80 [...] creatinine > 2 notify provider before administering.
[facility] Medication administered onsite Hydroxyzine Hydrochloride 50 MG Oral Tablet hydrOXYzin e (ATARAX) tablet 50 mg hydrOXYzine (ATARAX) tablet 50 mg 03/12/2021 12:16:34 PM EDT 50 mg Oral active 50 mg, Oral, Every 6 hours PRN, Anxiety, Sleep, Starting on 03/12/21 at 1216, For 30 days [facility] Medication administered onsite Acetaminophen 325 MG [...] mg from all sources in 24 hrs.
[facility] Medication administered onsite Insurance Providers Payer name Policy type / Coverage type Policy ID Covered green party ID Covered green party's relationship to buitrago Policy Buitrago Plan Information [facility] [id number] Self [id number] [facility] ACTIVE DUTY [id number] SP [id number] 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] FREIGHT RATE ANALYST+Uy8CAXAsOSz7H2I9PYIkFYk3T4UFI0DFRMPhEB ofSPelZSTmUVv1T5Z3JFDsY1YCZ4Wqrxtiei3+UL7OK25ZHZBrOIq1K4G1xULwR7Z6pEoFoEN7NC3YST 1IpBl0yKHshZ4+SN7AM5SNHzFmCCc8Q4U1aWLmO4R4wAvUgLK0LH2WFO8CbURpCLXepjSrVr8tL9HVRA wYSyFTUYL4LI1LgQCdVF0HlBCHO9MumLMuZl5wVYat dZLdtS1cCi6rEImpMU4ILhJHUOfXOBN3FK8BlEPdZY1UqDDMH7PqlPDwLz7dIDjpgQOlnf2+CK5GMTMs Vf1GGd2+WGbyxsNbUkdLJhJ8VXZpz0SfMMk1EH1QBU8lwCagTTL1Tn4IhQN3nSZnK7qWVG2HvEIdH07n oKTtOCLwVg5VUyX6dkVusS8UHJ82oHSdi2C3WOYyX1 akEAprw55tCJhoULiGRN3wKWELBJzcTErkKJC2AdEmgsdpKEZsVb0OFjMdLJd8vR3vmMW0FUV6SukxuD PnVGsiSeKoVjRcEnD0yFtgzhe4IIkzIX1mNLmdzqxvDKMlKzd+BIdlKZGkOEPdOlqLIAZpyI4whoL9bt MzFEvciKAoIy8vf5g4PvxqYg0iDa3rYBk2WcJdZpWp OHEwEo0buE06NEnwptSoPr3MZjZfAIQ4J9PwLsbDZCM+FWsvFWyedSn3sSFiZKYyTx7PDYPeDIBwZBYx ICAgICAgICAgICAgICAgICAgICAgICAgICAgICAgICAgICAgICAgICAgICAgICAgICAgICAgICAgICAg ICAgICAgICAgICAgICAgICAgICAgICAgICAgICAgIA 0KICAgICAgICAgICAgICAgICAgICAgICAgICAgICAgICAgICAgICAgICAgICAgICAgICAgICAgICAgIC TfQSFsUKQjSPRvGGMaGFPlYHGfXSMxMJLpWIUpRXCaGHIaFIYiVCFhWA9NQTRxKSGzFZWcKGYgGVEmWP AgICAgICAgICAgICAgICAgICAgICAgICAgICAgICAg TLSiXQAeXCPsRZFnRSOiCWOxSEChGWPnQSIhHVBmXZArCQPmMNDzFQGrWHDwDWAzEDVcJT4RKVFyCKTp ICAgICAgICAgICAgICAgICAgICAgICAgICAgICAgICAgICAgICAgICAgICAgICAgICAgICAgICAgICAg ICAgICAgICAgICAgICAgICAgICAgICAgICAgICAgIC FuEK2EAOLvSIMwIUOkELAjRGVrURPuRHVdNAGwBBXnUMKmUYRrHPCzOWQkOCSqHTEjJNKsHDJsZKQbXC TeAGXgQOBuLVTiYATtQVOaMMLwPMHqOQKxAUFoJWKwAFEzGUZwJWBhPEEzUE2EYPTdGPIvUHGrNJWzMY AgICAgICAgICAgICAgICAgICAgICAgICAgICAgICAg YOTxLXAuICTmLODhABDeNYLzAVHdEPZaYDVaELLcFWYuKQJqEOTqTEIfTJQkQGGiDBExMJGeVS4WZQXp ICAgICAgICAgICAgICAgICAgICAgICAgICAgICAgICAgICAgICAgICAgICAgICAgICAgICAgICAgICAg ICAgICAgICAgICAgICAgICAgICAgICAgICAgICAgIC SkIQWzPS5AYTBnLSUtSXKzDIWbVZVoGPEvCEHySWTqTPPtUPPpIMJuXWGqIGSrNZJpVDMdKURfMNThTX TwFAXnJQTwDKImRAIjNYBeVZFhKFNrSOOwAEPtOLJxOLTuBQYkWFAmLELiALXfUI7OMSOsEJRpAVUbQA AgICAgICAgICAgICAgICAgICAgICAgICAgICAgICAg IHKuSOXlLSGrQWUcPRWcCILrEYIxNHQsKBYyKOFcTFUqEZPnFVJyNQTrVZSuHHKoBODhTCYeADHxNP7H ICAgICAgICAgICAgICAgICAgICAgICAgICAgICAgICAgICAgICAgICAgICAgICAgICAgICAgICAgICAg ICAgICAgICAgICAgICAgICAgICAgICAgICAgICAgIC YdKYNjNQMiFP7VVP00gGSkt3W7FRViMW7ojct/Uv5YHZwcllCabPQsOE0GWlOpXB0xaf2OSjXgEV8vrv 2DGSnCCfVdC7F0rKBgECMjGHTWJxKqG29mRKndUb33OVmyPIAgFqJyIMg8Bt5NRgEsL8ycJCLoYhO4IF LqClK4WXZwJfM0XSYzToOjRLOwUKMyQWAmVWMIOMV7 AZUxHcQjAiZmYOFiZUczYTOPRHYcUZGwAaKsGPaePU4Zc8QvgUV3RRw+Po3JWO7qs8XxYZc7OTSmVO4h iq5IEWwYEjDqW9JuegI1LZO9DKLpCn1ZYUVpVVZfxZU3WAPkMHXZMnPuJ4PqoG53EYBZVx8+DQplbmRv ZtdLOaA1YZBna4FkNQh1LR7YZIJqSIk4wVWsQGtmA9 ttygvgMBU8gR9ibrltTlgcBUXyrUfjSIrkWM6wDN9MFFQ5XEwgBzPhEfKzHHZiTYapIGGNBTeHQfImX3 Jdd1UhLfE2NQFeEnGeEQouVQSzObR1GR25sIqyJP0BPEPsOOUgUP18TOH3UKVkIn5SYr9XHvHpEL9cex 8NHgDfMTQmGkdMAej0DIylJG8UcVLuE4TtjKBce2xP MkIuN9KNJHX1RQTkGw7IKRXbZpRnGCNlBRkbHX0gCJXmLAHFoTqjihE6AP2MZQ4kzbAzCC9RIwSmKz4h Oa5BKcXkM5CbJ5GfQUMaJUNLRJlpJI9PJXkrVI3pVX8Lc6PPaOGfwR5rio1DKEHaCFGqVyhkau1ZTdfk W1N4wMqdKJXoCTwnMWOBYLfiWA1CPDOjRHJ2SWZ8Nk AfFEJLYaYrV75sZE8BW3Yoj80jRtT7RSSvLtOhRRkyOK43mSjoffLchQJjtHizUA1ANa3+DQplbmRvYm hPIcgjWTZHRaRmSbUFPfHpORAkBUNuUEPwNnZ9OiQwLe6SAWMnQLApVXBgGaKjRKYxWJHjPLxeDMRoAH EzQAZhREKqTXKwBM7ZBkIzEGZyKvZ3NzXkXJCzBEAg ii7FIEEmEUAeWMH2PgKmNOWrFOLvDPblAQGqXON4AYQeIRNfCTTaQZ7RQnIxYEMpZIYrZEKdLNPdYAJq pq1FRVLhZHJqVII2PMLiXTFbKCDqVRaoBEVnUNU5QiFxNYLbDKKvLM8LZmStCIMeIRD0GNEyVAFbQTTh un9DJTLaKFGpYTv5LMUkWQTvVRLyKVapZALzYBG2De F7LHMqHSSnYO1KCzGoFIMdPAT1SXJlRCRkSFEeqg9HPYDhRBVoQKahWpJwXJNsDXEjMHlrGCCcTQM5TH M5YTJbJSEgCG1CNjMdLMMkJkH1QWPsBMEcPCWwal2CKVPvHDMrJtbhYtTrCNJuHHUpMZynYKWdQMI3Kq t7EQCgNNOsNP0EEeHmTCCeMep5FVEkCXYkFHAozk3T EFUgHUUlPAOlVNPlXTAeRSGhODgeFULsIQAqBAH7MMQrQKFvFA1LNsZcDOWzWmC3YEJvNAJdKLCbdz7K SJDfFKIvVtn4JBDsKXBxZQNeZMakCQLoTZE9QSC9KLVkYXChDQ4QZqLcSFHaXtGuOESeMWMqTBNetr6A CTQtLCJnYRVnRLXdUQKgZZWmXDjaEHMzGAG1JGt5OW UyCXZzWA6IDcPjMUOeOmGvQAScGTNwJVHkin7ASQQxWRFhJpF5YGLlGQIcKEZbJEviKUGdFEM8RYC4UA QxTJFoZX4MYpCcYDKpZiw6GyvlNMSpQBDphw2NSFOfRMYsFeqaIiBlAHTfGWXcYNvcBFWlYRG3MIv0NZ TmZDQkOK9JWbNqQGSlLwabXXDbEZHeSAYvvd5RNFIz VCWiWND3QeGuUMQnSVXiIUwsSEUuMZTkQpI0CQLwRRRwGN7RPaBlXFYxBDM5NjOuMDPfLHLdpg3YYWQq JKM3GYUhRJOsTDXtGIKzAFbcSVUzFMGfUQcjCDNeBNWzBL2PVtOaVBBnRKY0DGnwZUPdUSHntd2UHUOd GIN0CPg7VHGuIJCuAOPgVSzuXZArEBPqEdD9WXVaXP MkPK0IBwRuMTSgWIC5UYalATKoQSSzyf8IKADmFDP0Dma8UmTeWYJqMURfPKtmTYMiHFD0SAB1UGWrKA ClLY3FFdOfJKCoOWMkDKClEDSaHGRkqq8PMNEwODG9PGCeUnKoXMRfLYHeYTydYENbPKB2FMZ6FDEfIF DwKR6MRwSoYDEtHNv9BkMwIHRhEETpir8ERYDsQWF3 QNmfAHTdGRNdFKOjLVhcCPXfRZYwGAugDYVpHXLwZU2XQxGbYONgIrZoNRCaWNMcCFEwwh3IGKFkCBO4 QWFqZZEpQBIgJSPvDXakYHKyCTGpZcfjMREqVSCtMX3YYbLgCHEeGmQ9XOFsDRHmBOIqra6VRHIrJHW0 MTgwMiAwMDAwMCBuDQowMDAwMDYxOTgxIDAwMDAwIG 9BHaJtWIEjVmA8MKQjTCVxNKJxhp2NYEDtSCF7Qqt9PmFsRPAxLFPzXDnjLXJoWQB2DYP0QYThMIWcTD 2RFeXaWIBtPeZcIVOiHSHxQFGqnd4CuYSfnZkgyd6JYQnZIk1ZrBetQZWxBBydJl7otVL2DFIlFUXXDx 1RtpMhCPNyGODSVAsbCWEoDUb1KFV6QZt8IIvdJOXw MbCpCNX5XhFsTLN4YRX6TXNqHyQ9VWtuCAZ9DZcwJHPsX8PiBpE4ZVv3THTcSZAxWVZcOGB+UC9lIGs+ If8Gj2QzhaD5xgDdXXm4OPL4LI2GKSLEW4CSAj== ID Date Data Source [id number] 03/13/2021 04:37:20 PM EDT [facility] Name Value Range Interpretation Code Description Data [facility](s) Supporting Document(s) History and Physical [facility] HPDXCc4qGvCFUuVf33/EAVamWXUus8FgFPdhXFu0KTqbCBSkC6LwDPU3lM1gCSY9OWcGMcVuElKzYEB8 lbm CoXicLEmYhFGJvVolEQfHhKMqdXeoyvQTzVR7WhYN9UWRmA84cOCIgNSMkS1NhPVE9IAf+Ad7DVZRtaX KxLY0DFtbX7Eewq+W8Gn8nmV+DHSANFxwdUhURLOOUs2Y506cursX9h5F8A2Y3LbgJeOva6Ou++sp6sT nhvoLDDIh2dL2XbKpRpAkJM05FPoSAVK61Pq3214St ji9q93dyZGYppa//SdTdbLXpVv/JOpEBytKWXwzI/pVgnbx5SHpei0qZsGjIymT9KirkqLFkhDW2TQh4 zFq6J4yscmaSELaq8xpIKEUO3VjVI8QzKGRYQFN/h9uAVzuCbCLpb+B0GlkgiBaUQChwJPG2WbyFwxzq 1mJNhaoJuwmDRtxrezESFgIDoPWBQA1AHK4K+vm7nD 4fiQ87+2S8IOqmqYCKZdXwfOjFvi3oXj0tMj5chzM2Gvz883TVX46lcLOOfiTPt9CXrfEIIZ6shXuR7U 0poTiEe6BhVYUCxn9iEWzFiFvlXQeUzvqDXi3cc6E/0jhapOIsmifTZXg/j8jbaqizMf+yEInj7hN68F f1v1h8rhl8cyVCZjMo64BdmBM3EErh/mQI5Ghv3Srv gt4aFNmW0N6j5utjcqx4pR2rbwyV3p5Tu81W7ed06LBKfVecp+SzxM6ipvht82CV/xDoe4FcmJ1gmmVZ 5+fs5Lr+CcI0CyGbpWFSwvC93ylpMKWJKHoPLw2HRyYWsrcGunfivJ7CzOJNMECDBC2AQTDDBvoRtfSh vnClFw4/0oZJGx0UybEbiHPLAw51UJGf4u19AWeCAi UUawp7JhgLz5tY/e1qCR1h2ZQ9sRWo+uAzWhjbE7K/UP+Saeid+h2AXWkjZ8D0RjT5NcxP2+JQOTpgTtax QVJramP9WDjvmGEcAK4Fyt9muHpUIQ3iNnP8jKnQXEnms2lhhdYXP+kr7srmQBnKmenZN19ncS87xfog +U1ZmnZc0q/mp+MzAHa9jFTGDbJB0NYATA7KGtyjPy +omSpxSO+5SksdSDSrCdNZNDVWRST/sROsHmdcXD59StpMT+mQ32lnuOUikhvBunkySpVSHWUiSPivJo MSzpb6J0NZN2f3BFnxnB8XLc4OFKJUul6XRP+qX9z8AWECq5f69NKbaSzp0yfQBJP4eB38n4wH7LNczy 1RsdIJ5wozRHMsplu7s1sgZWclytJt6Tsbx2FSTxLr JxQTalwtZsByV66u0ScsX1sd2ZRtwlCb/AcgudWwh5tqq5vv9mjUqvbauW1uJzByBch8un8bbfd5XAaI QyAAJH+ejKkr5a4pMjAdTjaXyOsoyUOhcvZdCgcbt62Q/hAnnbl50BzEjgcutI4ESbh2FdS1LpCJPMsi fAIgUe2yyHrrTXIumBXkiPifbS4RkAbp3B5W0r541d nhtvcvWMFudZSCcaRae0Q+pXnwp63fHyxuLpQzUm7Iue+DSUJSphZ4Qw/n+5LU2JpzacXZnT4V2pwSLZ z1plRQ5mjMQsexDNYCXMWd3BQL+PFC/Spe7T8BQs40+WjaCpK7QIHV9NTrZftCv/TwMKk2FVqXQitsmb iOA0YcvA/F+4hSjyzW8BxePuvU2xgIPFZW/7WHsZ0h o3oAXTje8vqkdXEHzIz7wXLPRp7elnPCvryRt4DEZdLVcHbyhblNdclofnnHEV59ze7A5HDotkBa98nm Fl2KXpvJ7u49aYbIcUwVl1saBzQLFI8prAWb6GDztKPwCNFVkwA42fIHAbbgrvOu+f6gj90nblhp2fZp nTFN7Lb6B6lzjJutIGfS2kjEqQ2PbnqG2zsial+lF4 m57C4qJ5b64wZBJ3aBM7CPzHj8xLUZI5g2Y9SxV2Vf6AgqriAuzMImLK2VQnmrmfe9yz2LvoOP95+MAGGIE [file] G6MNNmZPL+LA1oEYh+Aa2Gn8UruiH5xwRiDExeRZW3Ex2MEHYJC7NEUe== ID Date Data Source [id number] 03/12/2021 04:47:14 PM EDT [facility] Name Value Range Interpretation Code Description Data Kristen e(s) Supporting Document(s) History and Physical [facility] GVFZIb9nUhDAEdYf21/BNTpsIDCia9OoEXdgLBs7VRbnMSQtL8SwCWC0cG2uCCN9FArSOxZlLuTmNUE3 lbm VnNofMQgAdJKRaZxyJYrCgPMceKuijzUBfLK8FbDC4FBAsS37yMJIvRHVsS6KwUBGfHCM+Dp9QCAJyjB GrPM8VJzlW4R8uPoO4Ui9+7c8HJisZJqJFcg9m8s2qJHxrOeGOHBrp+XVELXspkL8Yr3bbQ8x6B7zFZI +851PvTn8Fz2TP1Sm28t74h8Dz/pdQqUvF92sw+7P8 [file] +x8cZNuxtkBD5dcngfrM5FWN/INCOME TAX ANALYST/vhUDoK6lLNnLbBqfGmrBouguoKf9g6NDlaOcw64rQ6+4fmGh3lPa [file] AgICAgICAgICAgICAgICAgICAgICAgICAgICAgICAg ICAgICAgICAgICAgICAgICAgICAgICAgICAgICAgICAgICAgDQogICAgICAgICAgICAgICAgICAgICAg ICAgICAgICAgICAgICAgICAgICAgICAgICAgICAgICAgICAgICAgICAgICAgICAgICAgICAgICAgICAg ICAgICAgICAgICAgICAgICAgDQogICAgICAgICAgIC AgICAgICAgICAgICAgICAgICAgICAgICAgICAgICAgICAgICAgICAgICAgICAgICAgICAgICAgICAgIC AgICAgICAgICAgICAgICAgICAgICAgICAgICAgDQogICAgICAgICAgICAgICAgICAgICAgICAgICAgIC AgICAgICAgICAgICAgICAgICAgICAgICAgICAgICAg ICAgICAgICAgICAgICAgICAgICAgICAgICAgICAgICAgICAgICAgDQogICAgICAgICAgICAgICAgICAg ICAgICAgICAgICAgICAgICAgICAgICAgICAgICAgICAgICAgICAgICAgICAgICAgICAgICAgICAgICAg ICAgICAgICAgICAgICAgICAgICAgDQogICAgICAgIC AgICAgICAgICAgICAgICAgICAgICAgICAgICAgICAgICAgICAgICAgICAgICAgICAgICAgICAgICAgIC AgICAgICAgICAgICAgICAgICAgICAgICAgICAgICAgDQogICAgICAgICAgICAgICAgICAgICAgICAgIC AgICAgICAgICAgICAgICAgICAgICAgICAgICAgICAg ICAgICAgICAgICAgICAgICAgICAgICAgICAgICAgICAgICAgICAgICAgDQogICAgICAgICAgICAgICAg ICAgICAgICAgICAgICAgICAgICAgICAgICAgICAgICAgICAgICAgICAgICAgICAgICAgICAgICAgICAg ICAgICAgICAgICAgICAgICAgICAgICAgDQogICAgIC AgICAgICAgICAgICAgICAgICAgICAgICAgICAgICAgICAgICAgICAgICAgICAgICAgICAgICAgICAgIC AgICAgICAgICAgICAgICAgICAgICAgICAgICAgICAgICAgDQogICAgICAgICAgICAgICAgICAgICAgIC AgICAgICAgICAgICAgICAgICAgICAgICAgICAgICAg ZQSzPETtOQPfTUBsZPVlECNaEDJpLXEdGBUiTTFrJJChZTQmRQReKJUuSRNmJNk1R5vjDSEpNENfYC2k YPz7Wu8+CBiVYjWxKNE5ryRbeE1BLB2tw5BgVKwxYDMga3RdFHe4YN1JAJYhPBxyBS9NGKyoto1SVJFo LSTeaKQTp4vnAqRuIWG4MXHbZpzkYU5FAWIrN9xmcz YhWYIaUUDWKFxvMYBBUOddMQCWKLXjKHKbYlXsGfJnBMIbLAPqSCAJYUL6SLFpZcLgNLyhRY3Fp0HixK A3DQo+Il5FAE4gb1CvKEy3BvJdTV6gep8LDTpRAwSmU5PuuaM5THU3VSPeZu6JTKHvZHLurWD7EXReVA MNBtIrI1CfdH36IOZXNo3+UKvtfnBuPdfETkK4FTWc g7UnINp3LY9IDLRqVKw7eTAqPKGKDXL8ITYqtvdhLYCWk1W8MEPGECTtdHR5IqD7QcWfBoVwDRF4RDZe JO7lNPpmBS8NKMU2PNmeOXFqPXXpI4vMQvIuSSKgGnRqiEbtPR7MFgQyQ2CsblRigVU1JgOfMYFISk5+ TLrkzcYdFrwTBfE8LRWhg2TvHPk1DG4ACYJxLTkuKA 8VUWUzmO2oHXqbPD7SDiQ0SZGvVRQRLeIrQ42siDOwQGl2W0HdXcQjLLKbIeugVXGuLVhkUrNjYZOxVw BdDQogID4+ID4+YWcqRZ1BTLaysrXdKASdJn2XLIAjILJaCO2eHFMlEAExE4Q0zXehDJIQToKcH3zpvz suYB1oXHMuP388aIgwwbHeUGJbCBCmBq8HBLNdAJY4 KGUafXPtLIHqNWPIRHiaZN9KnEXuHZQ9mZ2vVUkkZQKvAWDgT0sAFeGrgYeuGG58uMxmhfYwaPGaMLl+ La2EOV0fh7NqFTg0szOyUNntSCI6WCzoYKNlLZBbVVYuFBU8MNU4JMQFXiMiJDEyPOAaCLvwZTGoYXWa fm4ZIRWqRRGjBCK9EBPkHOFbJVTqLDkeOIFjOOW2Px H5RJXyNSCnQT7MTqLdSTFoKKHcHJunBPDmYZWvmm7RPFJtPMLrZpNqLJWsTYCcQZApWKkdLSDuVASdOg F2GNMmEDFlHJ6MAxNzZOQnAJNsQRQdYSVdPYJdte0NVBFwTCIfRrY6NIEtNLTzGKYhPSjeHAWtLGAeZH d4NASnZMMlRE9XPxUsOPWfSWN9CbjoTJCjYDKtjj4J KZDpCYLwVPC8HoJjHPZxDFArGXssVAJfHWG5Crq4ASMqXQPbUP5ABlSrKEWbXUz2LWXsQPSlPSZuff1J IJMfMHPrTsc5KJEkMGUfNKXzMIfxUJZjIVVsRVF1FYBfPYSaIU1PYwNeQFYsYhI6LNTrKYKfYQUrzn8P IGHwRZJbMyD0FXJhZQJlYDEzCSnwVABoPEVkKUJcUB SpCAPkDT1QAiPfOGYySxT0ItEbCROzSPGews9GZKCeMUHjLnSyCEFnDGInJMWdPEtqUTYmYXJxULVhGB IjPXMwVC1HKqDaWNUtWwU8GsLiKUGyOYBogf6GLDZxJBQeYOk2DtTdZYEvESAuEZtsNCSaWVJ7CRVaFK GhHJXaHH1RTtZhSZMcPcPjOWJvFWLfIXVvsa9REUMh VNKgLsXbTbAdVVApAMJpAMzpAYEnZYG2MVgfMUTfQJLrIX1CCxRfNDZgHxj7VEChPPHgLWFhay3PAUXe IPGgBrY1KBSdTZKsKBTlWMgwJFVoEVD6QDD9VPZfURHrYV1OTiStSKAxViS3USJkZJMhAAYdmf1GWQEn NGFfLyBzLFEyAIMmZSXbXSftAABeCBZuMoI3JRVrXV XgMC7RGdEzPYNiUsQ7LUKdUEOuLIVrfx6SOUMvXTAdPkLpFEIwTKBaYVXaAMgxDJQqQQVgBRL7SCFoMF HtVS9KAxHrEYDsOlWxSTmtEFTiMFNpuz0BMXJhQVGjVAMcWLLtJDYeHJIcXRbvREWpQNK6WSo6LRVfOU GfXU1XLbYiMVPnRvIfTtIyAHSoSZAorl9AQBRtPRPy DFY9KoNrAYMxXMVhPYbuYROfYVI6VOY2HUPgUDNgYO1VXwNbLYDfGds8KHZmPUFxLBXkpg0ZURTpCIJb KnY5TvYrLHEfEKCnEGnkQLXeKRT8XpIaEURfRFXhNQ8IJgIhOOzpGRNLVhp6KRtkS2i2PRB2Xd1FO1Wi i4VsZVJbEXMKOTpjKM5dcbJcBOEaNa5AD7qEXdpbIw zlSHSyJvP1P8ThGbV4RvW4FQsbSYF0LzFrEEYoQq8dMWFiF6R1ADR9Bwz5QTOjBPtuFwPrQWKeVwQlCS BjCJH4TdAbGE4XCa0STbZ2ULO3pDJoVe2FSvi0KUXUUtPgIF9HCBe= ID Date Data Source [id number] 03/12/2021 08:49:00 AM EDT [facility] Name Value Range Interpretation Code Description Data Kristen rce(s) Supporting Document(s) SARS coronavirus 2 RNA [Presence] in Res piratory specimen by JENIFFER with probe detection NEGATIVE [facility] This lab was ordered by [facility] a nd reported by [facility]. ID Date Data Source [id number] 10/13/2020 09:59:00 AM EDT [facility] Name Value Range Interpretation Code Description Data Kristen rce(s) Supporting Document(s) SARS coronavirus 2 RNA Not Detected [facility] This lab was ordered by [facility] and reported by [facility]. Procedure Social History No Information Vital Signs ID Date Data Source [id number] 03/22/2021 08:36:18 PM [facility] Name Value Range Interpretation Code Description Data Source(s) TRANSFER FROM [facility] Patient Treatment Plan of Care Planned Activity Planned Date Details Description Data Source (s) Ketoconazole 20 MG/ML Topical Cream 03/23/2021 12:00:00 AM [facility] olanzapine 5 MG Oral Tablet 03/22/2021 12:00:00 AM [facility] olanzapine 5 MG Oral Tablet 03/22/2021 12:00:00 AM [facility] Magnesium Hydroxide 80 MG/ML Oral Suspension 03/12/2021 12:16:44 PM [facility] Hydroxyzine Hydrochloride 50 MG Oral Tablet 03/12/2021 12:16:34 PM [facility] Acetaminophen 325 MG Oral Tablet 03/12/2021 12:16:32 PM [facility]
== END 2021-07-05 23:19 | disposition left against medical advice (07) ==
LOC: M ED 17:16
DX: Z53.29 Procedure and treatment not carried out because of patient's decision for other reasons (principal)

== ENCOUNTER 2021-11-24 10:37 | Emergency (ER) | payer OTHER ==
[~2021-11-24] VITALS: Ht 170.2 cm; Wt 87.0 kg
[2021-11-24 12:50] VITALS: BP 133/75
[2021-11-24 12:53] LABS: GC DNA AMPLIFICATION NEGATIVE (NEGATIVE)
== END 2021-11-24 13:00 | disposition home or self-care (01) ==
LOC: M ED 10:37
DX: Z20.2 Contact with and (suspected) exposure to infections with a predominantly sexual mode of transmission (principal)

== ENCOUNTER 2022-03-19 10:33 | Emergency (ER) | payer OTHER ==
[~2022-03-19] VITALS: Ht 172.7 cm; Wt 84.4 kg
[2022-03-19 11:28] LABS: BACTERIA, URINE SMALL AMOUNT; HYALINE CAST, URINE NONE SEEN /lpf (0-1); RBC, URINE 0-1 /hpf (0-3); SQUAMOUS EPITHELIAL CELL URINE SMALL AMOUNT /hpf (SMALL AMT)
[2022-03-19 12:44] LABS: GC DNA AMPLIFICATION NEGATIVE (NEGATIVE)
[2022-03-19] MEDS ORDERED: VALT500T PO (13:08)
[2022-03-19 13:14] VITALS: BP 146/88
== END 2022-03-19 13:22 | disposition home or self-care (01) ==
LOC: M ED 10:33
DX: A60.02 Herpesviral infection of other male genital organs (principal)